=== PATIENT | female | born 1965 | race African-American/Black ===

== ENCOUNTER 2022-02-23 05:58 | Inpatient (IN) ==
[2022-02-16 09:56] LABS: Basophils % 0.8 % (0.0-0.8); Eosinophils # 0.2 10*3/uL (0.0-0.87); Hematocrit 39.1 VOL% (35.7-47.0); Immature Granulocytes % 0.2 %; Immature Granulocytes Absolute 0.01 #; Lymphocytes # 2.2 10*3/uL (1.4-4.0); Lymphocytes % 45.9 % (21.3-54.2); Mean Corpuscular HGB Conc 33.2 GM/DL (32-36); Mean Corpuscular Volume 86.7 FL (87-102); Mean Platelet Volume 8.7 FL (9.6-12.0); Monocytes # 0.3 10*3/uL (0.11-0.8); Monocytes % 7.1 % (1.7-12.7); Platelet Count 313 T/CUMM (130-400); Red Blood Count 4.51 MC/CUMM (3.8-5.5); Red Cell Distribution Width 13.2 % (9.3-17.3); White Blood Count 4.8 T/CUMM (4-12)
[2022-02-16 10:28] LABS: Calcium 9.5 MG/DL (8.5-10.1); Potassium 3.6 MMOL/L (3.5-5.1)
[2022-02-23] MEDS ORDERED: GABAPENTIN 400 MG CAPSULE PO ONE (06:51)
[2022-02-23] MEDS ORDERED: DIAZEPAM 5 MG TABLET PO ONE (06:51)
[2022-02-23] MEDS ORDERED: ACETAMINOPHEN 500 MG TABLET PO ONE (06:51)
[2022-02-23] MEDS ORDERED: FAMOTIDINE 20 MG TABLET PO ONE (06:51)
[2022-02-23] MEDS: LACTATED RINGERS 1,000 ML IV SCH (07:03)
[2022-02-23] MEDS ORDERED: TISSUE ADHESIVE 1 EACH APPLICATOR TOP ONE ×2 (08:51→14:12)
[2022-02-23] MEDS ORDERED: DEXAMETHASONE 4 MG/1 ML VIAL ONE ×3 (09:10→15:03)
[2022-02-23] MEDS ORDERED: LIDOCAINE 1% 5 ML VIAL ONE (09:10)
[2022-02-23] MEDS ORDERED: ROPIVACAINE 0.5% 30 ML VIAL ONE ×2 (09:11→09:35)
[2022-02-23] MEDS ORDERED: MIDAZOLAM 2 MG/2 ML VIAL ONE (09:26)
[2022-02-23] MEDS ORDERED: fentaNYL 100 MCG/2 ML VIAL ONE (09:26)
[2022-02-23] MEDS ORDERED: SEVOFLURANE 1 UNIT/15 MINUTE INH ONE ×13 (10:22→14:37)
[2022-02-23] MEDS ORDERED: ONDANSETRON 4 MG/2 ML VIAL ONE (10:22)
[2022-02-23] MEDS ORDERED: propofoL 200 MG/20 ML VIAL IV ONE (10:22)
[2022-02-23] MEDS ORDERED: ROCURONIUM 50 MG/5 ML VIAL IV ONE ×3 (10:22→14:37)
[2022-02-23] MEDS ORDERED: LIDOCAINE 2% 5 ML VIAL ONE (10:22)
[2022-02-23] MEDS ORDERED: PHENYLEPHRINE 10 MG/1 ML VIAL IV ONE (10:25)
[2022-02-23] MEDS ORDERED: ePHEDrine 50 MG/ML VIAL ONE (10:33)
[2022-02-23] MEDS ORDERED: ACETAMINOPHEN 325 MG TABLET PO PRN (14:30)
[2022-02-23] MEDS ORDERED: HYDROmorphone 1 MG/1 ML SYRINGE IV PRN (14:30)
[2022-02-23] MEDS ORDERED: ONDANSETRON 4 MG/2 ML VIAL IV PRN ×2 (14:30→15:02)
[2022-02-23] MEDS ORDERED: GLYCOPYRROLATE 0.4 MG/2 ML VIAL ONE (14:31)
[2022-02-23] MEDS ORDERED: NEOSTIGMINE 10 MG/10 ML VIAL ONE (14:31)
[2022-02-23] MEDS: HYDROmorphone 1 MG/1 ML SYRINGE IV PRN ×2 (15:06→15:27)
[2022-02-23] MEDS: DEXTROSE 5% LACTATED RINGERS 1,000 ML IV SCH (16:59)
[2022-02-23] MEDS ORDERED: PROMETHAZINE INJ 25 MG in SODIUM CHLORIDE 0.9% 50 ML IV PRN (22:46)
[2022-02-24] MEDS: DEXTROSE 5% LACTATED RINGERS 1,000 ML IV SCH ×4 (03:33→22:00)
[2022-02-24] MEDS: LACTATED RINGERS 1,000 ML IV SCH (05:45)
[2022-02-24] MEDS: PANTOPRAZOLE 40 MG TABLET PO SCH (08:48)
[2022-02-25] MEDS: DEXTROSE 5% LACTATED RINGERS 1,000 ML IV SCH (06:15)
[2022-02-25] MEDS: LACTATED RINGERS 1,000 ML IV SCH (06:29)
[2022-02-25] MEDS ORDERED: ENOXAPARIN 40 MG/0.4 ML SYRINGE SUBCUT SCH (08:30)
[2022-02-25] MEDS: PANTOPRAZOLE 40 MG TABLET PO SCH (10:12)
[2022-02-25 11:07] VITALS: BP 118/63
== END 2022-02-25 12:21 | disposition home or self-care (01) | DRG 355 ==
LOC: N.OR 05:58 → N.SDSINP 06:03 → N.3E 14:30
PROVIDERS: ADMIT Student in an Organized Health Care Education/Training Program; ATTEND Student in an Organized Health Care Education/Training Program